=== PATIENT | female | born 1955 | race Caucasian/White ===

== ENCOUNTER 2018-08-21 04:45 | Emergency (ER) | payer BC ==
--- NOTE | 2018-08-21 05:16 | EDM.PDOC ---
ED HPI GENERAL MEDICAL PROBLEM - General Chief Complaint: Genitourinary Problem Stated Complaint: Loss of Bladder Control Time Seen by Provider: 08/21/18 05:11 Source of Information: Reports: Patient, RN, RN Notes Reviewed History Limitations: Reports: No Limitations - History of Present Illness INITIAL COMMENTS - FREE TEXT/NARRATIVE: Patient presents to the ED at [facility] for the evaluation of urinary frequency, which started yesterday. Urine has a strong odor. No dysuria. No abdominal or pelvic pain. Has back pain from a recent back surgery on 2018. Patient states she has lost control of her bladder. Patient states this happened last spring and was given "a medication that worked." Patient states around the end of last summer, she had similar symptoms. She was on a medication that cleared her symptoms but can not remember the name. Patient rates her current back pain 5/10. She has been on narcotic pain medications for many years. Onset Date: 08/20/18 - Related Data Allergies Allergy/AdvReac Type Severity Reaction Status Date / Time No Known Allergies Allergy Verified 08/21/18 05:00 Home Meds: Home Meds Amitriptyline [Elavil] 10 mg PO BEDTIME 04/12/18 [History] Aspirin 325 mg PO Q2D 04/12/18 [History] Atenolol 50 mg PO DAILY 04/12/18 [History] Gabapentin [Neurontin] 300 mg PO TID 04/12/18 [History] Ibuprofen [Advil] 400 mg PO BID PRN 04/12/18 [History] Leflunomide [Arava] 20 mg PO DAILY 04/12/18 [History] Levothyroxine 25 mcg PO DAILY 04/12/18 [History] Magnesium Chloride [Mag-64] 128 mg PO BID 04/12/18 [History] Multivitamin with Minerals [Multivitamins with Minerals] 2 cap PO BID 04/12/18 [ History] Potassium Chloride 40 meq PO DAILY 04/12/18 [History] Tocilizumab [Actemra] 0.9 ml SQ WEEKLY 04/12/18 [History] hydroCHLOROthiazide [Hydrochlorothiazide] 12.5 mg PO DAILY 04/12/18 [History] traMADol [Ultram] 50 mg PO Q6H PRN 04/12/18 [History] Sulfamethoxazole/Trimethoprim [Bactrim Ds Tablet] 1 each PO BID 3 Days #6 tablet 08/21/18 [Rx] Past Medical History HEENT History: Reports: Cataract, Glaucoma Cardiovascular History: Reports: Hypertension Respiratory History: Reports: None Gastrointestinal History: Reports: Diverticulosis, Other (See Below) Other Gastrointestinal History: LIPOMA OF COLON Genitourinary History: Reports: Renal Disease, Urinary Incontinence Other Genitourinary History: CK II Musculoskeletal History: Reports: Osteoarthritis, RA, Other (See Below) Other Musculoskeletal History: TOE FX. FATIGUE. TMJ. TRIGGER FINGER Neurological History: Reports: Other (See Below) Other Neuro History: LUMBAR RADICULAPATHY Psychiatric History: Reports: Anxiety, Depression Endocrine/Metabolic History: Reports: Hypothyroidism, Vitamin D Deficiency Hematologic History: Reports: Other (See Below) Other Hematologic History: HYPOMAGNESIUM. HYPOKALEMIA Immunologic History: Reports: None Oncologic (Cancer) History: Reports: Colon Dermatologic History: Reports: Other (See Below) Other Dermatologic History: ACNE VULGARIS - Past Surgical History Head Surgeries/Procedures: Reports: None HEENT Surgical History: Reports: Cataract Surgery, Tonsillectomy Cardiovascular Surgical History: Reports: None GI Surgical History: Reports: Appendectomy, Cholecystectomy, Colon, Colonoscopy , Hernia Repair/Other Female Surgical History: Reports: Hysterectomy, Oophorectomy Neurological Surgical History: Reports: Laminectomy Musculoskeletal Surgical History: Reports: Arthroscopic Knee, Carpal Tunnel, Knee Replacement, Other (See Below) Other Musculoskeletal Surgeries/Procedures:: BUNIONECTOMY. FT SX. METATARSAL PHALAN FUSION. TRIGGER FINGER RELEASE ED ROS GENERAL - Review of Systems Review Of Systems: See Below Constitutional: Denies: Fever, Chills Respiratory: Denies: Shortness of Breath, Cough Cardiovascular: Denies: Chest Pain, Palpitations GI/Abdominal: Denies: Abdominal Pain, Nausea, Vomiting : Reports: Frequency, Incontinence, Urgency. Denies: Dysuria, Pain Skin: Reports: No Symptoms Neurological: Reports: No Symptoms ED EXAM, RENAL/ - Physical Exam Exam: See Below Exam Limited By: No Limitations General Appearance: Alert, No Apparent Distress Respiratory/Chest: No Respiratory Distress, Lungs Clear, Normal Breath Sounds Cardiovascular: Normal Peripheral Pulses, Regular Rate, Rhythm GI/Abdominal: Normal Bowel Sounds, Soft, Non-Tender (Female) Exam: Deferred Neurological: Alert, Oriented Skin Exam: Warm, Dry, Intact, Normal Color Course - Orders/Labs/Meds Orders: Active Orders 24 hr Category Date Time Status Sulfamethoxazole/Trimethoprim [Take Home: Sulfameth/ Med 08/21/18 05:44 Once Trimet 800-160MG, 2 Pack] 2 packet PO ONETIME ONE Departure - Departure Time of Disposition: 05:46 Disposition: Home, Self-Care 01 Condition: Good Clinical Impression: UTI, Urinary tract infectious disease - Discharge Information *PRESCRIPTION DRUG MONITORING PROGRAM REVIEWED*: No *COPY OF PRESCRIPTION DRUG MONITORING REPORT IN PATIENT ELYSE: No Prescriptions: Sulfamethoxazole/Trimethoprim [Bactrim Ds Tablet] 1 each PO BID 3 Days #6 tablet Instructions: Urinary Tract Infection, Adult Referrals: Maddy Fulton MD [Primary Care Provider] - Forms: ED Department Discharge Additional Instructions: 1. Stay well hydrated and rest 2. Take antibiotic for the full coarse, even if you are feeling better 3. Use cranberry juice 4. If symptom don't improve over the next 3-5 days, contact your PCP 5. LOTS of water - Problem List Review Problem List Initiated/Reviewed/Updated: Yes - My Orders Last 24 Hours: My Active Orders 08/21/18 05:44 Sulfamethoxazole/Trimethoprim [Take Home: Sulfameth/Trimet 800-160MG, 2 Pack] 2 packet PO ONETIME ONE - Assessment/Plan Last 24 Hours: My Active Orders 08/21/18 05:44 Sulfamethoxazole/Trimethoprim [Take Home: Sulfameth/Trimet 800-160MG, 2 Pack] 2 packet PO ONETIME ONE Assessment:: UTI Plan: Labs discussed with patient. Will start on Bactrim DS as this seem to work well with previous symptoms. SE discussed. Use cranberry juice. See PCP as symptoms warrant. Patient requested a refill of narcotic pain medication, this was declined. Recommend she contact her surgeon or PCP for refills.
[2018-08-21] MEDS ORDERED: Take Home: Sulfamethoxazole/Trimethoprim 800-160 MG Tab, 2 Tab Pack PO ONE (05:44)
== END 2018-08-21 06:10 | disposition home or self-care (01) ==
LOC: VM.ED 04:45
DX: N39.0 Urinary tract infection, site not specified (principal); I12.9 Hypertensive chronic kidney disease with stage 1 through stage 4 chronic kidney disease, or unspecified chronic kidney disease; N18.2 Chronic kidney disease, stage 2 (mild); Z79.82 Long term (current) use of aspirin; Z79.899 Other long term (current) drug therapy; E03.9 Hypothyroidism, unspecified; Z98.890 Other specified postprocedural states; Z90.49 Acquired absence of other specified parts of digestive tract; Z90.710 Acquired absence of both cervix and uterus
CPT/HCPCS: 81002; 99283; A9270

== ENCOUNTER 2018-10-12 16:23 | Emergency (ER) | payer OTHER, BC ==
--- NOTE | 2018-10-12 17:12 | CR ---
[id number] RAD/RAD Lumbar Spine 2-3V EXAM: AP AND LATERAL LUMBAR SPINE. INDICATION: Back pain. Previous surgery. Previous trauma. COMPARISON: Correlation is made with the CAT scan of May 25, 2018. FINDINGS: Surgical changes of the lower 3 lumbar disc spaces are seen along with degenerative changes elsewhere. There is no fracture or subluxation. IMPRESSION: NO ACUTE FINDINGS. Jim Huber MD 10/12/18 [id number] Thank you for allowing us to participate in the care of your patient.
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
== END 2018-10-12 17:30 | disposition home or self-care (01) ==
LOC: VM.ED 16:23
DX: S39.012A Strain of muscle, fascia and tendon of lower back, initial encounter (principal); I12.9 Hypertensive chronic kidney disease with stage 1 through stage 4 chronic kidney disease, or unspecified chronic kidney disease; N18.2 Chronic kidney disease, stage 2 (mild); F32.9 Major depressive disorder, single episode, unspecified; E03.9 Hypothyroidism, unspecified; F41.9 Anxiety disorder, unspecified; Z79.82 Long term (current) use of aspirin; Z79.899 Other long term (current) drug therapy; V89.2XXA Person injured in unspecified motor-vehicle accident, traffic, initial encounter
CPT/HCPCS: 72100; 99284-25

== ENCOUNTER 2019-01-14 20:08 | Emergency (ER) | payer BC ==
--- NOTE | 2019-01-14 20:30 | EDM.PDOC ---
ED HPI GENERAL MEDICAL PROBLEM - General Chief Complaint: Upper Extremity Injury/Pain Stated Complaint: HURT WRIST Time Seen by Provider: 01/14/19 20:14 Source of Information: Reports: Patient History Limitations: Reports: No Limitations - History of Present Illness INITIAL COMMENTS - FREE TEXT/NARRATIVE: Patient comes into the emergency department with complaint of a right wrist injury. Patient tried to catch herself as she tripped and fell landing on her right wrist. She states that she noted immediate pain and discomfort. Patient presented emergency department right away. Patient denies [facility] concerns. Patient has limited range of motion due to pain and discomfort. Patient denies taking Tylenol or ibuprofen but did take a tramadol prior to arrival. Patient denies having any recent injuries to that wrist. Onset: Sudden Severity: Mild Improves with: Reports: Immobilization Worsens with: Reports: Movement Right Wrist Pain Score (Numeric/FACES): 10 - Related Data Allergies Allergy/AdvReac Type Severity Reaction Status Date / Time No Known Allergies Allergy Verified 01/14/19 20:18 Home Meds: Home Meds Amitriptyline [Elavil] 10 mg PO BEDTIME 04/12/18 [History] Atenolol 50 mg PO DAILY 04/12/18 [History] Gabapentin [Neurontin] 300 mg PO TID 04/12/18 [History] Ibuprofen [Advil] 400 mg PO BID PRN 04/12/18 [History] Leflunomide [Arava] 20 mg PO DAILY 04/12/18 [History] Levothyroxine 25 mcg PO DAILY 04/12/18 [History] Magnesium Chloride [Mag-64] 128 mg PO BID 04/12/18 [History] Multivitamin with Minerals [Multivitamins with Minerals] 2 cap PO BID 04/12/18 [ History] Potassium Chloride 40 meq PO DAILY 04/12/18 [History] Tocilizumab [Actemra] 0.9 ml SQ WEEKLY 04/12/18 [History] hydroCHLOROthiazide [Hydrochlorothiazide] 12.5 mg PO DAILY 04/12/18 [History] traMADol [Ultram] 50 mg PO Q6H PRN 04/12/18 [History] Past Medical History HEENT History: Reports: Cataract, Glaucoma Cardiovascular History: Reports: Hypertension Respiratory History: Reports: None Gastrointestinal History: Reports: Diverticulosis, Other (See Below) Other Gastrointestinal History: LIPOMA OF COLON Genitourinary History: Reports: Renal Disease, Urinary Incontinence Other Genitourinary History: CK II Musculoskeletal History: Reports: Osteoarthritis, RA, Other (See Below) Other Musculoskeletal History: TOE FX. FATIGUE. TMJ. TRIGGER FINGER Neurological History: Reports: Other (See Below) Other Neuro History: LUMBAR RADICULAPATHY Psychiatric History: Reports: Anxiety, Depression Endocrine/Metabolic History: Reports: Hypothyroidism, Vitamin D Deficiency Hematologic History: Reports: Other (See Below) Other Hematologic History: HYPOMAGNESIUM. HYPOKALEMIA Immunologic History: Reports: None Other Immunologic History: mixed connective tissue Oncologic (Cancer) History: Reports: Colon Dermatologic History: Reports: Other (See Below) Other Dermatologic History: ACNE VULGARIS - Past Surgical History Head Surgeries/Procedures: Reports: None HEENT Surgical History: Reports: Cataract Surgery, Tonsillectomy Cardiovascular Surgical History: Reports: None GI Surgical History: Reports: Appendectomy, Cholecystectomy, Colon, Colonoscopy , Hernia Repair/Other Female Surgical History: Reports: Hysterectomy, Oophorectomy Neurological Surgical History: Reports: Laminectomy Musculoskeletal Surgical History: Reports: Arthroscopic Knee, Carpal Tunnel, Knee Replacement, Other (See Below) Other Musculoskeletal Surgeries/Procedures:: BUNIONECTOMY. FT SX. METATARSAL PHALAN FUSION. TRIGGER FINGER RELEASE Review of Systems - Review of Systems Review Of Systems: ROS reveals no pertinent complaints other than HPI. Constitutional: Reports: No Symptoms Eyes: Reports: No Symptoms Nose: Reports: No Symptoms Respiratory: Reports: No Symptoms Cardiovascular: Reports: No Symptoms Genitourinary: Reports: No Symptoms Musculoskeletal: Reports: No Symptoms Skin: Reports: No Symptoms Neurological: Reports: No Symptoms Psychiatric: Reports: No Symptoms ED EXAM, GENERAL - Physical Exam Exam: See Below Exam Limited By: No Limitations General Appearance: Alert, WD/WN, No Apparent Distress Respiratory/Chest: No Respiratory Distress, No Accessory Muscle Use Extremities: Limited Range of Motion (right wrist: pain upon palpation. limited ROM due to pain in all four directions. ) Neurological: Alert, Oriented, Normal Gait Psychiatric: Normal Affect, Normal Mood Skin Exam: Warm, Dry, Intact, Normal Color Course - Vital Signs Last Recorded V/S: Last Vital Signs Temp 36.4 C 01/14/19 20:28 Pulse 70 01/14/19 20:28 Resp 12 01/14/19 20:28 BP 195/95 H 01/14/19 20:28 Pulse Ox 96 01/14/19 20:28 - Orders/Labs/Meds Orders: Active Orders 24 hr Category Date Time Status Wrist Comp Min 3V Rt [CR] Stat Exams 01/14/19 20:21 Taken Meds: Medications Discontinued Medications Generic Name Dose Route Start Last Admin Trade Name Adriane PRN Reason Stop Dose Admin Oxycodone/Acetaminophen 1 tab 01/14/19 20:37 01/14/19 20:48 Percocet 325-5 Mg PO 01/14/19 20:38 1 tab ONETIME ONE Administration Departure - Departure Time of Disposition: 20:50 Disposition: Home, Self-Care 01 Condition: Good Clinical Impression: Right wrist fracture Qualifiers: Encounter type: initial encounter Fracture type: closed Qualified Code(s): S62.101A - Fracture of unspecified carpal bone, right wrist, initial encounter for closed fracture - Discharge Information *PRESCRIPTION DRUG MONITORING PROGRAM REVIEWED*: Not Applicable *COPY OF PRESCRIPTION DRUG MONITORING REPORT IN PATIENT ELYSE: Not Applicable Instructions: Cast or Splint Care, Adult, [id number], RICE for Routine Care of Injuries, Acetaminophen; Hydrocodone tablets or capsules Referrals: Maddy Fulton MD [Primary Care Provider] - Forms: ED Department Discharge Additional Instructions: 1. rest 2. non weightbearing till evaluated by orthopedic 3. Take pain medication as needed for severe pain. Take 1 tab every 4 hours. 4. Can take ibuprofen for mild to moderate pain 5. Wear the splint until orthopedic clears 6. Apply ice to the area 3-4 times a day for 20 minutes 7. elevate above the level of the heart as much as possible when resting 8. Call with questions or concerns. - My Orders Last 24 Hours: My Active Orders 01/14/19 20:21 Wrist Comp Min 3V Rt [CR] Stat - Assessment/Plan Last 24 Hours: My Active Orders 01/14/19 20:21 Wrist Comp Min 3V Rt [CR] Stat Assessment:: 1. right wrist injury 2. right wrist fracture Plan: 1. X-ray of right wrist 2. Ice given to the patient 3. Percocet given in the ER for severe pain 4. Hand splint applied applied due to the swelling. Will have the patient follow up later in the week for casting once swelling decreases 5. splint applied to right wrist 6. Take home medications provided for pain 7. follow up instructions provided 8. Education regarding splinting, activity, diet, medication management, and follow up care.
[2019-01-14] MEDS ORDERED: Acetaminophen/oxyCODONE 325-5 MG Tab PO ONE (20:37)
[2019-01-14] MEDS ORDERED: Take Home: Acetaminophen/HYDROcodone 325-5 MG, 5 Tab Pack PO ONE (20:54)
--- NOTE | 2019-01-16 08:38 | CR ---
[id number] RAD/RAD Wrist Right 3V Min EXAM: RIGHT WRIST 3 VIEWS INDICATION: Fall. COMPARISON: None. DISCUSSION: A small corticated ossicle along the distal aspect of the ulna may represent a tiny chronic ununited fracture. No definite acute fracture. Moderate first carpometacarpal and mild triscaphe and radiocarpal osteoarthritis. IMPRESSION: 1. Evidence of prior distal ulna trauma. No definite acute fracture. Ranjeet Martin MD 01/16/19 0837 Thank you for allowing us to participate in the care of your patient.
== END 2019-01-14 21:00 | disposition home or self-care (01) ==
LOC: VM.ED 20:08
DX: S62.101A Fracture of unspecified carpal bone, right wrist, initial encounter for closed fracture (principal); I12.9 Hypertensive chronic kidney disease with stage 1 through stage 4 chronic kidney disease, or unspecified chronic kidney disease; N18.2 Chronic kidney disease, stage 2 (mild); E03.9 Hypothyroidism, unspecified; F41.9 Anxiety disorder, unspecified; F32.9 Major depressive disorder, single episode, unspecified; Z79.899 Other long term (current) drug therapy; W01.0XXA Fall on same level from slipping, tripping and stumbling without subsequent striking against object, initial encounter
CPT/HCPCS: 73110; 99283; A9270

== ENCOUNTER → 2023-04-29 | Day surgery (SDC) | payer MEDICARE, OTHER ==
[~2023-04-29] MED LIST: Lactated Ringers 1,000 ML IV SCH; Ondansetron 4 MG/2 ML SDV ONE; Propofol 200 MG/20 ML SDV ONE; fentaNYL 100 MCG/2 ML SDV ONE
== END ==
LOC: VM.SDS 08:26
PROVIDERS: ATTEND Family Medicine
DX: Z08 Encounter for follow-up examination after completed treatment for malignant neoplasm (principal); E78.00 Pure hypercholesterolemia, unspecified; E03.9 Hypothyroidism, unspecified; F41.9 Anxiety disorder, unspecified; M06.9 Rheumatoid arthritis, unspecified; E55.9 Vitamin D deficiency, unspecified; I12.9 Hypertensive chronic kidney disease with stage 1 through stage 4 chronic kidney disease, or unspecified chronic kidney disease; N18.2 Chronic kidney disease, stage 2 (mild); E66.9 Obesity, unspecified; Z85.038 Personal history of other malignant neoplasm of large intestine; Z90.49 Acquired absence of other specified parts of digestive tract; Z98.0 Intestinal bypass and anastomosis status; Z98.890 Other specified postprocedural states; Z68.32 Body mass index [BMI] 32.0-32.9, adult
CPT/HCPCS: 00811; J2405; J2704; J3010; J7120